=== PATIENT | male | born 1990 | race Caucasian/White ===

== ENCOUNTER 2021-10-12 03:59 | Emergency (ER) | payer BC ==
[2021-10-12] MEDS ORDERED: Sodium Chloride 0.9% 2.5 ML Syringe FLUSH PRN (04:15)
[2021-10-12] MEDS ORDERED: Sodium Chloride 0.9% 10 ML Syringe FLUSH PRN (04:15)
[2021-10-12] MEDS ORDERED: Ketorolac 30 MG/ML SDV IVPUSH ONE (04:15)
[2021-10-12] MEDS ORDERED: Sodium Chloride 0.9% 1,000 ML IV ONE (04:15)
[2021-10-12] MEDS ORDERED: Alum Hydro/Mag Hydro/Simeth XS 15 ML, Lidocaine 2% 5 ML PO ONE ×2 (04:16)
[2021-10-12 04:34] LABS: BLOOD UREA NITROGEN,BUN 12 mg/dL (7.0-18.0); CARBON DIOXIDE,CO2 27.4 mmol/L (21.0-32.0); CHLORIDE,CL 98 mmol/L (98-107); GLUCOSE RANDOM 126 mg/dL (74-106); POTASSIUM,K 3.6 mmol/L (3.5-5.1); SODIUM,NA 135 mmol/L (136-148)
== END 2021-10-12 05:25 | disposition home or self-care (01) ==
LOC: MW.ED 03:59
DX: R07.89 Other chest pain (principal); I10 Essential (primary) hypertension; Z86.16 Personal history of COVID-19
CPT/HCPCS: 36415; 71045; 80053; 84484; 85025; 93005; 96361; 96374; 99285; A9270; J1885; J3490; J7030

== ENCOUNTER 2022-02-15 09:45 | Emergency (ER) | payer BC | END 2022-02-15 23:44 | disposition home or self-care (01) | LOC: MW.ED 09:45 | DX: R07.89 Other chest pain (principal) | CPT/HCPCS: 71045; 71045-26; 93010; 99283; 99284 ==